=== PATIENT | male | born 2000 | race Two or more races ===

== ENCOUNTER 2025-02-27 07:19 | Inpatient (IN) | payer MEDICAID ==
[~2025-02-27] VITALS: Ht 170.2 cm; Wt 112.1 kg
--- NOTE | 2025-02-27 07:55 | ED.PDOC ---
Musculoskeletal HPI Comments 24 year old male presents to the ED with a chief complaint of RT wrist pain onset 2 days. Patient states he woke up 2 days ago, noticed RT wrist was swollen, painful. Patient is not able to make a fist with RT hand due to pain. For the past day, patient noticed pain on RT hip radiated to LT ankle, is currently swollen. He also noticed pain radiated to LT wrist currently has a soreness sensation, states it is same feeling of RT wrist. He has also been experiencing diarrhea. Denies any PMHx as well as fall, injury, fevers, chills, nausea, vomiting, abdominal pain, chest pain, shortness of breath, dysuria, hematuria, penile discharge, dizziness, blurry vision, headache. No other symptoms or modifying factors present at this time. Chief Complaint: Upper Extremity Time Seen by MD: 07:35 Reviewed Notes: Medications, Allergies Allergies: Coded Allergies: Penicillins (Verified Allergy, Unknown, 02/27/25) Information Source: Patient Mode of Arrival: Ambulatory Location: Right Extremity Location: Wrist Timing: Days Prehospital treatment: None Severity: Moderate Pain: Moderate Hand Dominance: Right Mechanism: Spontaneous Circumstances: Spontaneous Onset of Symptoms: Spontaneous Symptoms: Swelling, Pain DVT Risk Factors: NONE Associated signs and symptoms: Wrist pain, Swelling, Ankle pain Past Medical History PAST MEDICAL HISTORY: Denies Surgical History: Denies all surgeries Family History Family History: Reviewed,noncontributory to illness, No family hx of Cancer, No family hx of DM, No family hx of Heart jose luis, No family hx of HTN, No family hx ofKidney jose luis, No family hx of Liver jose luis, No family hx of Lung jose luis, No family hx of Stroke Social History Smoker: Non-Smoker Alcohol: Denies ETOH Use Drugs: Marijuana Lives In: Home Constitutional: denies: chills, diaphoresis, fatigue, fever, malaise, sweats, weakness, others EENTM: denies: blurred vision, double vision, ear bleeding, ear discharge, ear drainage, ear pain, ear ringing, eye pain, eye redness, hearing loss, mouth pain, mouth swelling, nasal discharge, nose bleeding, nose congestion, nose pain, photophobia, tearing, throat pain, throat swelling, voice changes, others Respiratory: denies: cough, hemoptysis, orthopnea, SOB at rest, shortness of breath, SOB with excertion, stridor, wheezing, others Cardiovascular: denies: chest pain, dizzy spells, diaphoresis, Dyspnea on exertion, edema, irregular heart beat, left arm pain, lightheadedness, palpitations, PND, syncope, others Gastrointestinal: reports: diarrhea; denies: abdomen distended, abdominal pain, blood streaked bowels, constipated, dysphagia, difficulty swallowing, hematemesis, melena, nausea, poor appetite, poor fluid intake, rectal bleeding, rectal pain, vomiting, others Genitourinary: denies: burning, dysuria, flank pain, frequency, hematuria, incontinence, penile discharge, penile sore, pain, testicle pain, testicle swelling, urgency, others Neurological: denies: dizziness, fainting, headache, left sided numbness, left sided weakness, numbness, paresthesia, pre-existing deficit, right sided numbness, right sided weakness, seizure, speech problems, tingling, tremors, weakness, others Musculoskeletal: reports: others (RT wrist pain/swelling, LT wrist pain, LT an kle pain/swelling); denies: back pain, gout, joint pain, joint swelling, muscle pain, muscle stiffness, neck pain Integumetry: denies: bruises, change in color, change in hair/nails, dryness, laceration, lesions, lumps, rash, wounds, others Allergic/Immunocompromised: denies: Difficulty Healing, Frequent Infections, Hives, Itching, others Hematologic/Lymphatic: denies: anemia, blood clots, easy bleeding, easy bruising, swollen glands, others Endocrine: denies: excessive hunger, excessive sweating, excessive thirst, excessive urination, flushing, intolerance to cold, intolerance to heat, unexplained weight gain, unexplained weight loss, others Psychiatric: denies: anxiety, bipolar disorder, depression, hopeless, panic disorder, schizophrenia, sleepless, suicidal, others All Other Systems: Reviewed and Negative Physical Exam General Appearance: Normal HEENT: Normal ENT Inspection, Pharynx Normal, TMs Normal Neck: Full Range of Motion, Non-Tender, Normal, Normal Inspection Respiratory: Chest Non-Tender, Lungs Clear, No Accessory Muscle Use, No Respiratory Distress, Normal Breath Sounds Cardiovascular: No Edema, No JVD, No Murmur, No Gallop, Normal Peripheral Pulses, Regular Rate/Rhythm Breast Exam: Deferred Gastrointestinal: No Organomegaly, Non Tender, No Pulsatile Mass, Normal Bowel Sounds, Soft Genitalia: Deferred Pelvic: Deferred Rectal: Deferred Extremities: No calf tenderness Musculoskeletal : Apperance: Normal Neurologic: Alert, 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 Was a procedure done?: No Differential Diagnosis EXT Differential Diagnosis: DJD, Strain, Neurovascular injury X-Ray, Labs, Meds, VS Vital Signs Date Time Temp Pulse Resp B/P (MAP) Pulse Ox O2 Delivery O2 Flow Rate FiO2 02/27/25 07:36 98.1 74 18 153/84 (107) 98 98.1 Lab Test 02/27/25 08:37 02/27/25 07:41 Range/Units White Blood Count 8.1 4.4-10.8 10^3/uL Red Blood Count 5.40 4.5-5.90 10^6/uL Hemoglobin 16.5 13.5-17.5 g/dL Hematocrit 46.6 41.0-53.0 % Mean Corpuscular Volume 86.3 80.0-100.0 fL Mean Corpuscular Hemoglobin 30.5 28.0-32.0 pg Mean Corpuscular Hemoglobin Concent 35.3 32.0-36.0 g/dL Red Cell Distribution Width 12.9 11.8-14.3 % Platelet Count 220 140-450 10^3/uL Mean Platelet Volume 8.6 6.9-10.8 fL Neutrophils (%) (Auto) 69.4 37.0-80.0 % Lymphocytes (%) (Auto) 24.2 10.0-50.0 % Monocytes (%) (Auto) 5.4 0.0-12.0 % Eosinophils (%) (Auto) 0.4 0.0-7.0 % Basophils (%) (Auto) 0.6 0.0-2.0 % Neutrophils # (Auto) 5.6 1.6-8.6 10 ^3/uL Lymphocytes # (Auto) 1.9 0.4-5.4 10 ^3/uL Monocytes # (Auto) 0.4 0-1.3 10 ^3/uL Eosinophils # (Auto) 0 0-0.8 10 ^3/uL Basophils # (Auto) 0 0-0.2 10 ^3/uL Nucleated Red Blood Cells 0.2 % Sodium Level 141 136-145 mmol/L Potassium Level 3.9 3.5-5.1 mmol/L Chloride Level 103 98-107 mmol/L Carbon Dioxide Level 29 20-31 mmol/L Anion Gap 9 5-15 Blood Urea Nitrogen Pending Creatinine Pending Glomerular Filtration Rate Calc Pending BUN/Creatinine Ratio Pending Serum Glucose Pending Calcium Level 10.5 H 8.7-10.4 mg/dL Urine Color Light-yellow Yellow Urine Clarity Clear Clear Urine pH 5.5 5.0-9.0 Urine Specific [place] 1.017 1.001-1.035 Urine Protein Trace H Negative Urine Ketones Negative Negative Urine Blood Negative Negative /uL Urine Nitrite Negative Negative Urine Bilirubin Negative Negative Urine Urobilinogen Normal Negative mg/dL Urine Leukocyte Esterase Negative Negative /uL Urine RBC 1 0 - 3 /hpf Urine Microscopic WBC 1 0-3 /HPF Urine Squamous Epithelial Cells Few <5 /hpf Urine Bacteria Few H None Seen /hpf Urine Sperm Present None Seen /hpf Urine Glucose Normal Normal mg/dL [facility] [id number] [place] [address] Ph: [phone] DIAGNOSTIC IMAGING Diagnostic Imaging Report : [id number] Signed PATIENT: TOMEKA GARCIA AACCT: [id number] UNIT: [id number] : 2000 LOC: ER ROOM / BED: / AGE / SEX: 24 / M ADM STATUS: REG ER SERVICE [id number] ORDERING PHYSICIAN: JOSH NIX MD PROCEDURE(s): RWRI - R WRIST 3+ VIEW XRAY REASON: right wrist drop and pain ORDER NUMBER(s): [id number], ACCESSION NUMBER(s): [id number] CLINICAL INDICATION: right wrist drop and pain TECHNIQUE: XY R WRIST 3+ VIEW XRAY Comparison: None FINDINGS/IMPRESSION: : There is no evidence of acute fracture or dislocation. Soft tissues are unremarkable. ATED BY: LAWRENCE SIM MD DICTATED DATE/TIME: 02/27/25817 SIGNED BY: LAWRENCE SIM MD SIGNED DATE/TIME: 02/27/25817 CC: [address] [address] Ph: [phone] DIAGNOSTIC IMAGING Diagnostic Imaging Report : [id number] Signed PATIENT: TOMEKA GARCIA AACCT: [id number] UNIT: [id number] : 2000 LOC: ER ROOM / BED: / AGE / SEX: 24 / M ADM STATUS: REG ER SERVICE 1 ORDERING PHYSICIAN: JOSH NIX MD PROCEDURE(s): HWOCT - HEAD WITHOUT CONTRAST REASON: right wrist drop, left leg pain ORDER NUMBER(s): [id number], ACCESSION NUMBER(s): [id number] EXAM: CT HEAD WITHOUT CONTRAST HISTORY: right wrist drop, left leg pain COMPARISON: None TECHNIQUE: Axial images of the head were obtained and reformatted in coronal and sagittal planes. All CT scans at this medical facility are performed using dose modulation techniques as appropriate to a performed exam including the following: Automated exposure control was utilized; adjustment of the MA and/or KV according to patient size; and use of iterative reconstruction technique. CT Dose: CTDI volume is 61.94 mGy. Dose-length product is 1096.62 mGy*cm FINDINGS: There is no evidence of acute intracranial hemorrhage, mass, mass effect midline shift. There is no hydrocephalus or extra-axial fluid collection. Moncada-white matter differentiation is maintained. The visualized paranasal sinuses and mastoid air cells are clear. The calvarium is intact. IMPRESSION: 1. No acute intracranial process. HS:Y ATED BY: PETER PICKETT MD DICTATED DATE/TIME: 02/27/25805 SIGNED BY: PETER PICKETT MD SIGNED DATE/TIME: 02/27/25805 CC: Time of 1ST Reevaluation: 08:05 Reevaluation 1ST: Unchanged Patient Education/Counseling: Diagnosis, Treatment, Prognosis Family Education/Counseling: No Family Present Departure 1 Departure Time of Disposition: 09:08 (Patient with a possible neurapraxia versus radial nerve palsy of the right arm since patient's dominant hand. Patient also with lower leg paresthesias. We will admit patient for further workup and expert consultation.) Impression: Primary Impression: Acute radial nerve palsy of right upper extremity Additional Impressions: Right arm pain Left leg pain Disposition: ADMITTED INPATIENT Admit to: Med Surg Condition: Serious Critical Care Note Critical Care Time?: Yes Critical care comment: Concern for CVA Authorized and Performed by: Josh Nix MD Total critical care time: Approximately 38 minutes Due to a high probability of clinically significant, life threatening deterioration, the patient required my highest level of preparedness to int ervene emergently and I personally spent this critical care time directly and personally managing the patient. This critical care time included obtaining a history; examining the patient; pulse oximetry; ordering and review of studies; arranging urgent treatment with development of a management plan; evaluation of patient's response to treatment; frequent reassessment; and, discussions with other providers. This critical care time was performed to assess and manage the high probability of imminent, life-threatening deterioration that could result in multi-organ failure. It was exclusive of separately billable procedures and treating other patients and teaching time. Please see my other sections and the rest of the note for further information on patient assessment and treatment. Stability Stability form required: No I personally scribed for JOSH NIX MD ([email or web address]) on 02/27/25 at 07:55. Electronically submitted by Pattie Dominguez ([email or web address]). I personally scribed for JOSH NIX MD ([email or web address]) on 02/27/25 at 08:28. Electronically submitted by Patite Dominguez ([email or web address]). JOSH NIX MD Feb 27, 2025 07:55
--- NOTE | 2025-02-27 08:08 | DVH ---
EXAM: CT HEAD WITHOUT CONTRAST HISTORY: right wrist drop, left leg pain COMPARISON: None TECHNIQUE: Axial images of the head were obtained and reformatted in coronal and sagittal planes. All CT scans at this medical facility are performed using dose modulation techniques as appropriate t o a performed exam including the following: Automated exposure control was utilized; adjustment of th e MA and/or KV according to patient size; and use of iterative reconstruction technique. CT Dose: CTDI volume is 61.94 mGy. Dose-length product is 1096.62 mGy*cm FINDINGS: There is no evidence of acute intracranial hemorrhage, mass, mass effect midline shift. There is no h ydrocephalus or extra-axial fluid collection. Moncada-white matter differentiation is maintained. The visualized paranasal sinuses and mastoid air cells are clear. The calvarium is intact. IMPRESSION: 1. No acute intracranial process. HS:Y
--- NOTE | 2025-02-27 08:21 | DVH ---
CLINICAL INDICATION: right wrist drop and pain TECHNIQUE: XY R WRIST 3+ VIEW XRAY Comparison: None FINDINGS/IMPRESSION: : There is no evidence of acute fracture or dislocation. Soft tissues are unremarkable.
[2025-02-27 08:23] LABS: Urine Bacteria FEW /hpf (None Seen); Urine Blood Negative /uL (Negative); Urine Clarity Clear (Clear); Urine Color Light-Yellow (Yellow); Urine Protein, UAD TRACE (Negative); Urine Specific Gravity 1.017 (1.001-1.035); Urine Sperm PRESENT /hpf (None Seen); Urine Squamous Epithelial Cell FEW /hpf (<5); Urine Urobilinogen Normal (Negative); Urine WBC 1 /HPF (0-3); Urine pH 5.5 (5.0-9.0)
[2025-02-27 08:58] LABS: Basophils # (auto) 0 10 ^3/uL (0-0.2); Basophils % (auto) 0.6 % (0.0-2.0); Eosinophils # (auto) 0 10 ^3/uL (0-0.8); Eosinophils % (auto) 0.4 % (0.0-7.0); Hematocrit 46.6 % (41.0-53.0); Hemoglobin 16.5 g/dL (13.5-17.5); Lymphocytes # (auto) 1.9 10 ^3/uL (0.4-5.4); Lymphocytes % (auto) 24.2 % (10.0-50.0); Mean Corpuscular Hemoglobin 30.5 pg (28.0-32.0); Mean Corpuscular Hgb Conc. 35.3 g/dL (32.0-36.0); Mean Corpuscular Volume 86.3 fL (80.0-100.0); Monocytes # (auto) 0.4 10 ^3/uL (0-1.3); Monocytes % (auto) 5.4 % (0.0-12.0); Neutrophils # (auto) 5.6 10 ^3/uL (1.6-8.6); Neutrophils % (auto) 69.4 % (37.0-80.0); Nucleated Red Blood Cells % 0.2 %; Platelet Count (auto) 220 10^3/uL (140-450); Red Cell Distribution Width 12.9 % (11.8-14.3); White Blood Cell 8.1 10^3/uL (4.4-10.8)
[2025-02-27 09:03] LABS: Chloride 103 mmol/L (98-107); Potassium 3.9 mmol/L (3.5-5.1); Sodium 141 mmol/L (136-145)
[2025-02-27 09:04] LABS: Anion Gap 9 (5-15); Carbon Dioxide 29 mmol/L (20-31)
[2025-02-27 09:05] LABS: Calcium 10.5 mg/dL (8.7-10.4)
[2025-02-27 09:09] LABS: BUN/Creatinine Ratio 9.5 (10.0-20.0); Glucose 101 mg/dL (74-106)
[2025-02-27 09:11] LABS: Blood Urea Nitrogen 8 mg/dL (9-23)
[2025-02-27] MEDS: HYDROcodone-ACET 5/325MG TAB PO ONE (12:08)
[2025-02-27] MEDS: diphenhdrAMINE HCL 50 MG/1 ML VL IM ONE ×2 (13:15→13:46)
[2025-02-27] MEDS ORDERED: NITROGLYCERIN 0.4 MG SL TAB SL PRN (13:15)
[2025-02-27] MEDS ORDERED: ONDANSETRON HCL 4 MG/2 ML VIAL IV PRN (13:15)
[2025-02-27] MEDS ORDERED: diphenhdrAMINE HCL 50 MG/1 ML VL IV PRN (13:15)
[2025-02-27] MEDS ORDERED: HYDROcodone-ACET 5/325MG TAB PO PRN (13:15)
[2025-02-27] MEDS ORDERED: MORPHINE SULFATE INJ 2 MG/ml SYRG IV PRN ×2 (13:15)
[2025-02-27] MEDS ORDERED: ACETAMINOPHEN 325 MG TAB PO PRN (13:15)
--- NOTE | 2025-02-27 13:24 | DVHHP2 ---
History of Present Illness Reason for Visit: Right wrist pain with swelling and left lower extremity pain History of Present Illness George Romeo is a 24-year-old male with no past medical history who presents to the ED with right wrist pain and swelling as well as left lower extremity pain x2 days. Patient reports that he had a baby shower outdoors in [place] recently. He states that he came in due to the unbearable pain. Upon examination on his right anterior wrist shows a round localized area that is erythematous as well as his left medial ankle with 2 noted round localized erythematous skin. Patient states that it does not itch however does hurt at the localized site. He is thinking he got bit by a bug. Patient also endorses right hand that is unable to close or make a fist but can extend. He states that the right wrist pain is 3/10 sore like and constant. Refers it to similar as working out" soreness. He states that the left lower extremity has pain. He endorses that all of the other extremities are starting to feel the same way. Patient denies any chest pain, shortness of breath, fever, chills, lightheadedness, weakness, dizziness, abdominal pain, nausea, vomiting, diarrhea, or urinary symptoms. Patient also denies any recent trauma or injury, recent sick contacts, recent travels out of the state or country, or recent ingestion of spoiled food. Past Surgical History: None Family History: Other (Mom with a pacemaker) Smoke: No ALCOHOL: none Drugs: Marijuana Lives: with Family Domestic Violence: Neg Review of Systems Musculoskeletal: other (Right wrist pain), foot pain (Left) Allergies: Coded Allergies: Penicillins (Verified Allergy, Unknown, 02/27/25) Exam Vital Signs Vital Signs Date Time Temp Pulse Resp B/P (MAP) Pulse Ox O2 Delivery O2 Flow Rate FiO2 02/27/25 12:57 98.0 58 20 134/82 (99) 97 98.0 02/27/25 10:05 Room Air General Appearance: Alert, Oriented X3, Cooperative, No acute distress HEENT: Atraumatic, PERRLA, EOMI, Mucous membr. moist/pink Respiratory: Clear to auscultation, Normal air movement Cardiovascular: Normal S1, Normal S2, No murmurs Abdominal: Normal bowel sounds, Soft, No tenderness, No hepatospenomegaly Extremities: No clubbing, No cyanosis, Normal pulses Neuro: Normal speech, Strength at 5/5 X4 ext, Normal tone, Sensation intact Psych/Mental Status: Mental status NL, Mood NL Labs/Xrays Labs Test 02/27/25 08:37 02/27/25 07:41 Range/Units White Blood Count 8.1 4.4-10.8 10^3/uL Red Blood Count 5.40 4.5-5.90 10^6/uL Hemoglobin 16.5 13.5-17.5 g/dL Hematocrit 46.6 41.0-53.0 % Mean Corpuscular Volume 86.3 80.0-100.0 fL Mean Corpuscular Hemoglobin 30.5 28.0-32.0 pg Mean Corpuscular Hemoglobin Concent 35.3 32.0-36.0 g/dL Red Cell Distribution Width 12.9 11.8-14.3 % Platelet Count 220 140-450 10^3/uL Mean Platelet Volume 8.6 6.9-10.8 fL Neutrophils (%) (Auto) 69.4 37.0-80.0 % Lymphocytes (%) (Auto) 24.2 10.0-50.0 % Monocytes (%) (Auto) 5.4 0.0-12.0 % Eosinophils (%) (Auto) 0.4 0.0-7.0 % Basophils (%) (Auto) 0.6 0.0-2.0 % Neutrophils # (Auto) 5.6 1.6-8.6 10 ^3/uL Lymphocytes # (Auto) 1.9 0.4-5.4 10 ^3/uL Monocytes # (Auto) 0.4 0-1.3 10 ^3/uL Eosinophils # (Auto) 0 0-0.8 10 ^3/uL Basophils # (Auto) 0 0-0.2 10 ^3/uL Nucleated Red Blood Cells 0.2 % Sodium Level 141 136-145 mmol/L Potassium Level 3.9 3.5-5.1 mmol/L Chloride Level 103 98-107 mmol/L Carbon Dioxide Level 29 20-31 mmol/L Anion Gap 9 5-15 Blood Urea Nitrogen 8 L 9-23 mg/dL Creatinine 0.84 0.700-1.30 mg/dL Glomerular Filtration Rate Calc 124 >90 mL/min BUN/Creatinine Ratio 9.5 L 10.0-20.0 Serum Glucose 101 74-106 mg/dL Calcium Level 10.5 H 8.7-10.4 mg/dL Urine Color Light-yellow Yellow Urine Clarity Clear Clear Urine pH 5.5 5.0-9.0 Urine Specific [place] 1.017 1.001-1.035 Urine Protein Trace H Negative Urine Ketones Negative Negative Urine Blood Negative Negative /uL Urine Nitrite Negative Negative Urine Bilirubin Negative Negative Urine Urobilinogen Normal Negative mg/dL Urine Leukocyte Esterase Negative Negative /uL Urine RBC 1 0 - 3 /hpf Urine Microscopic WBC 1 0-3 /HPF Urine Squamous Epithelial Cells Few <5 /hpf Urine Bacteria Few H None Seen /hpf Urine Sperm Present None Seen /hpf Urine Glucose Normal Normal mg/dL CLINICAL INDICATION: right wrist drop and pain TECHNIQUE: XY R WRIST 3+ VIEW XRAY Comparison: None FINDINGS/IMPRESSION: : There is no evidence of acute fracture or dislocation. Soft tissues are unremarkable. EXAM: CT HEAD WITHOUT CONTRAST HISTORY: right wrist drop, left leg pain COMPARISON: None TECHNIQUE: Axial images of the head were obtained and reformatted in coronal and sagittal planes. All CT scans at this medical facility are performed using dose modulation techniques as appropriate to a performed exam including the following: Automated exposure control was utilized; adjustment of the MA and/or KV according to patient size; and use of iterative reconstruction technique. CT Dose: CTDI volume is 61.94 mGy. Dose-length product is 1096.62 mGy*cm FINDINGS: There is no evidence of acute intracranial hemorrhage, mass, mass effect midline shift. There is no hydrocephalus or extra-axial fluid collection. Moncada-white matter differentiation is maintained. The visualized paranasal sinuses and mastoid air cells are clear. The calvarium is intact. IMPRESSION: 1. No acute intracranial process. Assessment/Plan Assessment/Plan Assessment Right wrist pain and swelling likely due to insect bite with localized single erythema (right anterior wrist) Left lower extremity pain with 2 localized areas of erythema (medial ankle) Marijuana use Obesity Plan Admit to [facility] IV antibiotics-clindamycin Antihistamines Antiemetics Pain management CT head noted GC chlamydia UA noted UDS X-ray right wrist noted Ultrasound bilateral lower extremities ordered ESR Diet No home medications patient reports DVT prophylaxis-not indicated patient ambulating PUD prophylaxis-not indicated no history of GERD or GI bleed Discussed plan of care with patient and nurse Counseled patient on cessation of marijuana use Counseled patient on lifestyle modifications, diet, and exercise Plan discussed with: Patient My Orders Orders - JESSICA EVANS Procedure Category Date Status Time Diphenhdramine PHA 02/27/25 In Process Injection (Benadryl 13:15 Ketorolac Injection PHA 02/27/25 In Process (Toradol Injection) 13:15 Clindamycin Ivpb PHA 02/27/25 Verified Cleocin 13:15 Diphenhdramine PHA 02/27/25 Verified Injection (Benadryl 13:15 Bilat Lower Dvt US 02/27/25 Verified 13:10 Admit ADMIT 02/27/25 Verified 13:10 Allergies [facility] 02/27/25 Verified 13:10 Code Status CODE 02/27/25 Verified 13:10 Hydrocodone-Acet PHA 02/27/25 Verified 5/325mg Tab ([place] 13:15 Ondansetron Hcl PHA 02/27/25 Verified (Zofran) 13:15 Complete Blood Count LAB 02/28/25 Verified 04:00 Comprehensive LAB 02/28/25 Verified Metabolic Panel 04:00 Cardiac DIET 02/27/25 Verified Diet-2gna,Lofat,Lochol Lunch Acetaminophen Tablet PHA 02/27/25 Verified (Tylenol Tablet) 13:15 Morphine Sulfate PHA 02/27/25 Verified Injection 13:15 Sequential [facility] 02/27/25 Verified Compression Device Nitroglycerin [facility] 02/27/25 Verified Sublingual (Ntrostat 13:15 Morphine Sulfate PHA 02/27/25 Verified Injection 13:15 Stat Ekg For Chest [facility] 02/27/25 Verified Pain 13:10 Notify Md Of Changes [facility] 02/27/25 Verified From Base 13:10 Curriculum Writer For [facility] 02/27/25 Verified 24 Hours 13:10 Emergency Dysrhythmia [facility] 02/27/25 Verified Protocol 13:10 Rhythm Strips Once [facility] 02/27/25 Verified Every Shift 13:10 Oxygen By Nasal RT 02/27/25 Verified Cannula 13:10 Date of Service: Feb 27, 2025 Billing Provider: JESSICA EVANS Common Visit Codes: [id number] INP/OBS CARE (HIGH) JESSICA EVANS Feb 27, 2025 13:24
[2025-02-27] MEDS: KETOROLAC TROMETH 30 MG/ML 1ML VIAL IV ONE (13:30)
[2025-02-27] MEDS: CLINDAMYCIN 600MG IV 50 ML IV SCH (13:41)
[2025-02-27 13:42] LABS: Amphetamine Screen, Urine Neg (NEGATIVE); Barbiturate Scree,Urine Neg (NEGATIVE); Benzodiazephine Screen, Urine Neg (NEGATIVE); Cannabinoid Screen, Urine Pos (NEGATIVE); Cocaine Screen, Urine Neg (NEGATIVE); Opiate Scree,Urine Neg (NEGATIVE); Phencyclidine Screen, Urine Neg (NEGATIVE)
[2025-02-27 14:18] LABS: Erythrocyte Sedimentation Rate 28 mm/hr (0-20)
--- NOTE | 2025-02-27 14:58 | DVH ---
US BiLat Lower DVT HISTORY: r/o dvt COMPARISON: None TECHNIQUE: Duplex doppler evaluation of the deep venous system of the lower extremity from the common femoral veins, superficial femoral vein, great saphenous vein, deep femoral vein, popliteal vein, an d calf veins, including color doppler and spectral/pulsed waveform analysis, was performed. FINDINGS: Right: - Common femoral vein: Compressible - Deep femoral vein: Compressible - Femoral vein: Compressible - Popliteal vein: Compressible - Posterior tibial vein: Waveforms present - Other: Nothing Left: - Common femoral vein: Compressible - Deep femoral vein: Compressible - Femoral vein: Compressible - Popliteal vein: Compressible - Posterior tibial vein: Waveforms present - Other: Nothing IMPRESSION: No right or left lower extremity deep venous thrombosis.
[2025-02-27] MEDS: diphenhdrAMINE HCL 50 MG/1 ML VL IV ONE (15:04)
[2025-02-27 15:52] VITALS: BP 110/60; PULSE 60; RESP 20; TEMP 98.6; O2SAT 97
[2025-02-27] MEDS ORDERED: CLINDAMYCIN 600MG IV 50 ML IV SCH (22:00)
[2025-02-28 20:07] LABS: Chlamydia Trachomatis, NAA Negative (Negative); Neisseria gonorrhoeae, NAA Negative (Negative)
== END 2025-02-27 20:32 | disposition left against medical advice (07) | DRG 385 ==
LOC: ER 07:19 → OVERFLOW 13:10
DX: S60.861A Insect bite (nonvenomous) of right wrist, initial encounter (principal); E66.9 Obesity, unspecified; Z68.38 Body mass index [BMI] 38.0-38.9, adult; F12.90 Cannabis use, unspecified, uncomplicated; G56.31 Lesion of radial nerve, right upper limb; M21.331 Wrist drop, right wrist; M79.605 Pain in left leg; Z88.0 Allergy status to penicillin; W57.XXXA Bitten or stung by nonvenomous insect and other nonvenomous arthropods, initial encounter; Y93.89 Activity, other specified; Y92.89 Other specified places as the place of occurrence of the external cause; Y99.8 Other external cause status
CPT/HCPCS: 36415; 70450; 73110; 80048; 80307; 81001; 85025; 85652; 93970; 96365; 96375; 99291; G0378; J1885; J3490